=== PATIENT | female | born 1965 | race Two or more races ===

== ENCOUNTER 2022-09-30 01:30 | Inpatient (IN) | payer BC, OTHER ==
[~2022-09-30] VITALS: Ht 165.1 cm; Wt 125.6 kg
--- NOTE | 2022-09-30 01:30 | NUR ---
Anibj462 from home for generalized weakness. Pt A/Ox4. Tolerating R/A well with no resp. distress. Safety measures in place.
--- NOTE | 2022-09-30 01:54 | NUR ---
GENETIC TECHNOLOGIST AT PT'S BEDSIDE
--- NOTE | 2022-09-30 01:56 | NUR ---
BLOOD COLLECTED AND SENT TO LAB
--- NOTE | 2022-09-30 01:57 | NUR ---
COVID SWAB DONE AND SENT TO LAB
[2022-09-30 02:15] LABS: BASOPHILS # (AUTO) 0.2 K/uL (0.0-0.2); BASOPHILS % (AUTO) 3.1 % (0.0-2.0); EOSINOPHILS % (AUTO) 8.5 % (0.0-6.0); HEMATOCRIT 23 % (33-45); HEMOGLOBIN 7.4 g/dL (11.5-14.8); LYMPHOCYTES # (AUTO) 1.6 K/uL (0.8-4.8); LYMPHOCYTES % (AUTO) 23.4 % (20.0-44.0); MEAN CORPUSCULAR HGB CONC 33 g/dl (31.0-36.0); MEAN CORPUSCULAR VOLUME 91 fL (82-100); MONOCYTES # (AUTO) 0.8 K/uL (0.1-1.30); MONOCYTES % (AUTO) 12.5 % (2.0-12.0); NEUTROPHILS # (AUTO) 3.6 K/uL (1.8-8.9); NEUTROPHILS % (AUTO) 52.5 % (43.0-81.0); PLATELET COUNT (AUTO) 324 K/uL (150-450); RED BLOOD CELL COUNT(AUTO) 2.51 MIL/uL (4.0-5.2); WHITE BLOOD COUNT (AUTO) 6.8 K/uL (4.3-11.0)
[2022-09-30 02:36] LABS: ALANINE AMINOTRANSFERASE 18 U/L (12-78); ALKALINE PHOSPHATASE 86 U/L (46-116); ASPARTATE AMINOTRANSFERASE 16 U/L (15-37); BILIRUBIN,TOTAL 0.1 mg/dL (0.2-1.0); CALCIUM, SERUM 8.2 mg/dL (8.5-10.1); CARBON DIOXIDE 22 mmol/L (21-32); CHLORIDE 117 mmol/L (98-107); GLUCOSE 98 mg/dL (74-106); POTASSIUM 4.5 mmol/L (3.5-5.1); SODIUM SERUM 146 mmol/L (136-145); TOTAL PROTEIN, SERUM 4.2 g/dL (6.4-8.2); UREA NITROGEN, BLOOD 46 mg/dL (7-18)
[2022-09-30 02:37] LABS: ALBUMIN 0.9 g/dL (3.4-5.0)
--- NOTE | 2022-09-30 02:37 | NUR ---
CRITICAL LAB ALBUMIN 0.[address] JAIME.
[2022-09-30] MEDS ORDERED: DULO60CA64 PO (03:15)
[2022-09-30] MEDS ORDERED: METO5TAB7 (03:15)
[2022-09-30] MEDS ORDERED: AMLO-213 PO (03:15)
[2022-09-30] MEDS ORDERED: BUPR-319 PO (03:15)
[2022-09-30] MEDS ORDERED: ARIP5TAB59 PO (03:15)
[2022-09-30] MEDS ORDERED: LISI40TA13 PO (03:15)
[2022-09-30] MEDS ORDERED: BUSP15TA3 PO (03:15)
[2022-09-30] MEDS ORDERED: METO5TAB7 PO (03:15)
[2022-09-30] MEDS ORDERED: TRAZ150T75 PO (03:15)
--- NOTE | 2022-09-30 03:15 | NUR ---
REPORT GIVEN TO MACK FariasW RN FOR KAT
--- NOTE | 2022-09-30 03:19 | NUR ---
DR JAIME PRESENTING PT TO [facility], SALVADOR COLD ROLL INSPECTOR ADMITTING.
--- NOTE | 2022-09-30 03:25 | NUR ---
PT WAS TRANSFERRED TO THIRD FLOOR UNDER ACLS
[2022-09-30 03:30] VITALS: BP 126/61
[2022-09-30] MEDS ORDERED: MAGNESIUM HYDROXIDE 30 ML UDC PO PRN (03:30)
[2022-09-30] MEDS ORDERED: ONDANSETRON HCL/PF 4 MG/2 ML VIAL IVP PRN (03:30)
[2022-09-30] MEDS ORDERED: ACETAMINOPHEN 325 MG TABLET PO PRN (03:30)
[2022-09-30] MEDS ORDERED: MAG HYDROX/AL HYDROX/SIMETH 30 ML UDC PO PRN (03:30)
[2022-09-30] MEDS ORDERED: ZOLPIDEM TARTRATE 5 MG TABLET PO PRN (03:30)
[2022-09-30] MEDS ORDERED: Z GUARD REMEDY 4 OZ OINT TP PRN (03:30)
--- NOTE | 2022-09-30 03:30 | NUR ---
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
[2022-09-30 04:00] VITALS: BP 126/61
--- NOTE | 2022-09-30 06:52 | NUR ---
POWER SYSTEM ENGINEER NOTES FAIRLY RESTED SINCE CAME TO THE UNIT.DENIES PAIN DISCOMFORTS.DRY COUGH NOTED THIS MORNING,ENCOURAGED FLUID INTAKE,KEPT ON UPRIGHT POSITION.CALL LIGHT IN REACH,NEEDS ATTENDED.
[2022-09-30 07:30] VITALS: BP 138/83
--- NOTE | 2022-09-30 07:56 | NUR ---
RN OPENING NOTES PATIENT ON BED AWAKE A/O X 3-4. NO SIGN OF PAIN NOTED AT THIS TIME,ON ROOM AIR BREATHING EVENLY AND UNLABORED, NO DISTRESS OF SOB NOTED. IV ACCESS ON LEFT HAND #20G INTACT PATENT AND FLUSHING WELL. FALL AND SAFETY MEASURE IN PLACE, BED IN LOWEST LOCKED POSITION, BED ALARM ON, CALL LIGHT AND TABLE WITHIN EASY REACH, SIDE RAILS UP X2. WILL CONTINUE TO MONITOR.
--- NOTE | 2022-09-30 08:32 | NUR ---
WOUND CARE CONSULT: PT PRESENTS WITH BILATERAL LOWER LEG REDNESS WITH INTACT BLISTERS, PRESENT ON ADMISSION. UNNA WRAPS WERE REMOVED THIS AM. PT PREVIOUSLY REFUSED WRAP REMOVAL. DR PAGE CALLED FOR DPM CONSULT. IN AGREEMENT WITH PLAN OF CARE.
[2022-09-30] MEDS: busPIRone 5 MG TABLET PO SCH ×2 (08:48→17:19)
[2022-09-30] MEDS: PANTOPRAZOLE 40 MG TABLET.DR PO SCH (08:48)
[2022-09-30] MEDS: ARIPIPRAZOLE 5 MG TABLET PO SCH (08:48)
[2022-09-30] MEDS: BUPROPION XL 150 MG TAB.ER.24 PO SCH (08:51)
[2022-09-30] MEDS: AMLODIPINE BESYLATE 10 MG TABLET PO SCH (08:51)
[2022-09-30] MEDS: DULOXETINE HCL 30 MG CAPSULE.DR PO SCH (08:52)
[2022-09-30] MEDS ORDERED: ATOR40TA PO (08:55)
[2022-09-30 09:27] LABS: THYROID STIMULATING HORMONE 3.477 uIU/mL (0.358-3.74)
[2022-09-30] MEDS: FUROSEMIDE 100 MG/10 ML VIAL IV SCH ×3 (10:17→17:20)
[2022-09-30] MEDS: HEPARIN SODIUM, PORCINE 5000 UNITS/1 ML VIAL SQ SCH ×2 (10:17→21:00)
[2022-09-30 11:30] VITALS: BP 84/74
[2022-09-30 14:24] LABS: BILIRUBIN,URINE NEGATIVE (NEGATIVE); COLOR,URINE YELLOW (YELLOW); LEUKOCYTE ESTERASE ,URINE NEGATIVE (NEGATIVE); NITRITE, URINE NEGATIVE (NEGATIVE); PROTEIN,URINE 3+ mg/dl (NEGATIVE); UGLUCOSE NEGATIVE (NEGATIVE); UROBILINOGEN,URINE 0.2 EU/dL (0.2)
[2022-09-30 14:37] LABS: CREATININE, URINE 112.7 MG/DL (30.0-125.0); URINE TOTAL PROTEIN 459.3 mg/dL (0-11.9)
[2022-09-30 16:00] VITALS: BP 103/56
[2022-09-30 17:28] LABS: BACTERIA,URINE RARE /HPF (None Seen); WBC,URINE 0-2 /HPF (0-3)
--- NOTE | 2022-09-30 18:40 | NUR ---
RN CLOSING NOTES PATIENT ON BED AWAKE A/O X 3-4. NO SIGN OF PAIN NOTED AT THIS TIME, ON 2L/MIN OXYGEN VIA NC, BREATHING EVENLY AND UNLABORED, NO DISTRESS OF SOB NOTED, SATURATING AT 95%. IV ACCESS ON LEFT HAND #20G INTACT PATENT AND FLUSHING WELL. PATIENT ON EXTERNAL RESIDENCE LIFE DIRECTOR WITH CURRENT READING OF SR AND HR OF 93, NO CARDIAC DISTRESS NOTED.SCHEDULED MEDICATION GIVEN. ALL NEEDS ARE ATTENDED AND ANTICIPATED. FALL AND SAFETY MEASURE IN PLACE, BED IN LOWEST LOCKED POSITION, BED ALARM ON, CALL LIGHT AND TABLE WITHIN EASY REACH, SIDE RAILS UP X2. WILL ENDORSE TO ELECTRICAL INSPECTOR NURSE.
[2022-09-30 18:51] LABS: EOSINOPHIL,URINE None Seen
--- NOTE | 2022-09-30 19:30 | NUR ---
BUSINESS INTELLIGENCE DIRECTOR OPENING NOTES - RECEIVED PATIENT AWAKE, HOB IN SEMI-LO'S. A/O X3. VERBALIZED SHE STILL FEELS SOME SHORTNESS OF BREATH, CURRENTLY ON O2 AT 2LPM VIA NASAL CANULA. EQUAL RISE AND FALL OF CHEST NOTED. C/O CHRONIC DULL LOWER BACK PAIN 12/10. ON TELE MONITOR READING SINUS RHYTHM AT 92 BPM. HAS LEFT HAND IV ACCESS #20G AND SALINE LOCKED. NO S/S OF INFILTRATION NOTED. HAS PUREWICK CONNECTED TO CONTINUOUS SUCTION. SAFETY PRECAUTIONS IN PLACE: BED LOCKED AND IN LOW POSITION, SIDE RAILS UP X2, CALL LIGHT WITHIN REACH. WILL CONTINUE PLAN OF CARE.
--- NOTE | 2022-09-30 19:56 | NUR ---
RECEIVED AN ORDER FROM HOSPITALEVI FRANCO FOR LIPITOR 40MG 1 TAB PO QHS AND NORCO 10-325MG 1 TAB PO Q6H FOR MODERATE TO SEVERE PAIN. NOTED AND CARRIED OUT.
[2022-09-30 20:00] VITALS: BP 108/61
[2022-09-30] MEDS: CEFEPIME 2 GM in IV D5W 100 ML IV SCH (20:56)
[2022-09-30] MEDS: HYDROCODONE/APAP 10/325MG TABLET PO PRN (20:58)
--- NOTE | 2022-09-30 21:19 | NUR ---
HGB 7.4, HOLD HEPARIN PER MD ORDER. NO ACTIVE BLEEDING.
[2022-09-30] MEDS ORDERED: ATORVASTATIN 40 MG TABLET PO SCH (22:00)
[2022-09-30] MEDS: TRAZODONE 50 MG TABLET PO SCH (22:08)
[2022-10-01] VITALS (7 sets, daily range): BP systolic 107–142; BP diastolic 42–92
[2022-10-01] MEDS ORDERED: ACETYLCYSTEINE 10% SOLN 400 MG/4 ML VIAL NEB PRN (02:00)
--- NOTE | 2022-10-01 02:03 | NUR ---
DIFFICULTY SECRETING PHLEGM NOTED. PLACED ON HUMIDIFIER AND RECEIVED AN ORDER FOR MUCOMYST 10% NEB Q6H PRN. NOTED AND CARRIED OUT.
[2022-10-01 05:46] LABS: BASOPHILS # (AUTO) 0.1 K/uL (0.0-0.2); EOSINOPHILS % (AUTO) 6.6 % (0.0-6.0); HEMATOCRIT 22 % (33-45); HEMOGLOBIN 7.2 g/dL (11.5-14.8); LYMPHOCYTES # (AUTO) 2.7 K/uL (0.8-4.8); LYMPHOCYTES % (AUTO) 43.2 % (20.0-44.0); MEAN CORPUSCULAR HGB CONC 32 g/dl (31.0-36.0); MEAN CORPUSCULAR VOLUME 91 fL (82-100); MONOCYTES # (AUTO) 0.8 K/uL (0.1-1.30); MONOCYTES % (AUTO) 13.1 % (2.0-12.0); NEUTROPHILS # (AUTO) 2.2 K/uL (1.8-8.9); NEUTROPHILS % (AUTO) 36.1 % (43.0-81.0); PLATELET COUNT (AUTO) 325 K/uL (150-450); RED BLOOD CELL COUNT(AUTO) 2.47 MIL/uL (4.0-5.2); WHITE BLOOD COUNT (AUTO) 6.2 K/uL (4.3-11.0)
[2022-10-01 06:05] LABS: BILIRUBIN,TOTAL 0.1 mg/dL (0.2-1.0); CALCIUM, SERUM 8.2 mg/dL (8.5-10.1); CREATININE 1.7 mg/dL (0.6-1.3); MAGNESIUM 2.2 mg/dL (1.8-2.4); PHOSPHORUS 4.8 mg/dL (2.5-4.9); POTASSIUM 3.9 mmol/L (3.5-5.1); TOTAL PROTEIN, SERUM 4.1 g/dL (6.4-8.2)
[2022-10-01 06:10] LABS: ALBUMIN 0.8 g/dL (3.4-5.0)
--- NOTE | 2022-10-01 06:40 | NUR ---
ENCOURAGED PATIENT TO VOID, >600 ML URINE RETENTION NOTED IN BLADDER SCAN. NOTIFIED HOSPITALIST AND ORDERED IN AND OUT. NOTED AND CARRIED OUT. 550ML URINE OUTPUT DRAINED.
--- NOTE | 2022-10-01 07:02 | NUR ---
MOLD COOLER CLOSING NOTES - PATIENT RESTING IN BED, ABLE TO VERBALIZE NEEDS. KEPT HOB ELEVATED. MILD RESPIRATORY DISTRESS, PLACED ON O2 AT 2LPM WITH HUMIDIFIER TO PREVENT MUCOSAL DRYNESS. NO C/O PAIN OR DISCOMFORT AT THIS TIME. AFEBRILE. TELE MONITOR SHOWS SINUS RHYTHM AT 80-95 BPM. REINSERTED IV ACCESS TO RIGHT WRIST #24G AND SALINE LOCKED. INTACT, PATENT AND FLUSHING. CLEAR YELLOW URINE OUTPUT NOTED. ALL DUE MEDS GIVEN AND NEEDS ATTENDED. BILATERAL LOWER EXTREMITIES ELEVATED. SAFETY PRECAUTIONS MAINTAINED. WILL ENDORSE TO AM RN FOR KAT.
--- NOTE | 2022-10-01 07:10 | NUR ---
MOLDED GOODS SPOT PICKER OPENING NOTES - PATIENT RESTING IN BED, ABLE TO VERBALIZE NEEDS. KEPT HOB ELEVATED. MILD RESPIRATORY DISTRESS, PLACED ON O2 AT 2LPM WITH HUMIDIFIER TO PREVENT MUCOSAL DRYNESS. NO C/O PAIN OR DISCOMFORT AT THIS TIME. AFEBRILE. TELE MONITOR SHOWS SINUS RHYTHM AT 92 BPM. WITH REINSERTED IV ACCESS TO RIGHT WRIST #24G AND SALINE LOCKED. C/D/I. EDEMA AND MULTIPLE BLISTERS PRESENT ON BILATERAL LOWER EXTREMITIES, ELEVATED. SAFETY PRECAUTIONS MAINTAINED. WILL CONTINUE TO MONITOR.
[2022-10-01] MEDS: AMLODIPINE BESYLATE 10 MG TABLET PO SCH (08:37)
[2022-10-01] MEDS: DULOXETINE HCL 30 MG CAPSULE.DR PO SCH (08:37)
[2022-10-01] MEDS: ARIPIPRAZOLE 5 MG TABLET PO SCH (08:38)
[2022-10-01] MEDS: BUPROPION XL 150 MG TAB.ER.24 PO SCH (08:38)
[2022-10-01] MEDS: busPIRone 5 MG TABLET PO SCH ×2 (08:38→17:15)
[2022-10-01] MEDS: PANTOPRAZOLE 40 MG TABLET.DR PO SCH (08:43)
[2022-10-01] MEDS: HEPARIN SODIUM, PORCINE 5000 UNITS/1 ML VIAL SQ SCH ×2 (08:43→20:39)
[2022-10-01] MEDS ORDERED: BUMETANIDE INJ 16 MG in IV NS 0.9% 16 ML IV ONE (10:00)
[2022-10-01] MEDS ORDERED: EPOETIN ALFA (4000 UNIT) 4,000 UNIT/ML VIAL SQ SCH (15:00)
--- NOTE | 2022-10-01 18:51 | NUR ---
HEALTH THERAPIST CLOSING NOTES PATIENT RESTING IN BED, ABLE TO VERBALIZE NEEDS. KEPT HOB ELEVATED. MILD RESPIRATORY DISTRESS, PLACED ON O2 AT 3LPM WITH HUMIDIFIER TO PREVENT MUCOSAL DRYNESS. NO C/O PAIN OR DISCOMFORT AT THIS TIME. AFEBRILE. TELE MONITOR SHOWS SINUS RHYTHM AT 92 BPM. CLEAR YELLOW URINE OUTPUT NOTED. ALL DUE MEDS GIVEN AND NEEDS ATTENDED. BILATERAL LOWER EXTREMITIES ELEVATED. SAFETY PRECAUTIONS MAINTAINED. WILL ENDORSE TO PM RN FOR KAT.
--- NOTE | 2022-10-01 19:30 | NUR ---
ELEVATOR CONSTRUCTOR OPENING NOTES - RECEIVED PATIENT SLEEPING, EASY TO AROUSE. HOB ELEVATED TO 40 DEGREES. A/O X3. BREATHING EVEN AND NON-LABORED. ON O2 WITH HUMIDIFIER AT 3LPM VIA NASAL CANULA. C/O GENERALIZED BODY PAIN ESPECIALLY ON HER LEFT THIGH. ON TELE MONITOR READING SINUS RHYTHM AT 100 BPM. HAS RIGHT WRIST IV ACCESS #24G AND SALINE LOCKED. NO S/S OF INFILTRATION NOTED. HAS PUREWICK CONNECTED TO CONTINUOUS SUCTION. SAFETY PRECAUTIONS IN PLACE: BED LOCKED AND IN LOW POSITION, SIDE RAILS UP X2, CALL LIGHT WITHIN REACH. WILL CONTINUE PLAN OF CARE.
[2022-10-01] MEDS: HYDROCODONE/APAP 10/325MG TABLET PO PRN (19:52)
[2022-10-01] MEDS: CEFEPIME 2 GM in IV D5W 100 ML IV SCH (19:54)
--- NOTE | 2022-10-01 19:55 | NUR ---
PRN NORCO 10-325MG GIVEN TO PATIENT FOR C/O GENERALIZED PAIN MOSTLY IN HER BILATERAL THIGHS, ARMS AND ABDOMEN. WILL CONTINUE TO MONITOR.
--- NOTE | 2022-10-01 20:35 | NUR ---
NOTIFIED HOSPITALIST SALVADRO THAT PATIENT IS C/O SEVERE PAIN IN HER IV SITE. PATIENT IS HARD STICK AND IT HAS ALREADY BEEN CHANGED YESTERDAY. ORDERED MIDLINE. NOTED AND CARRIED OUT.
--- NOTE | 2022-10-01 20:40 | NUR ---
HGB 7.2, HOLD HEPARIN PER HOSPITALIST. NO BLOOD TRANSFUSION AT THIS TIME.
[2022-10-01] MEDS: TRAZODONE 50 MG TABLET PO SCH (22:39)
[2022-10-02] VITALS: BP 137/74
[2022-10-02 04:00] VITALS: BP 148/79
[2022-10-02 06:43] LABS: BASOPHILS # (AUTO) 0.1 K/uL (0.0-0.2); BASOPHILS % (AUTO) 0.9 % (0.0-2.0); EOSINOPHILS % (AUTO) 6.3 % (0.0-6.0); HEMATOCRIT 26 % (33-45); HEMOGLOBIN 8.4 g/dL (11.5-14.8); LYMPHOCYTES % (AUTO) 29.2 % (20.0-44.0); MEAN CORPUSCULAR HGB CONC 32 g/dl (31.0-36.0); MEAN CORPUSCULAR VOLUME 90 fL (82-100); MONOCYTES % (AUTO) 15.4 % (2.0-12.0); NEUTROPHILS # (AUTO) 3.3 K/uL (1.8-8.9); NEUTROPHILS % (AUTO) 48.2 % (43.0-81.0); PLATELET COUNT (AUTO) 361 K/uL (150-450); RED BLOOD CELL COUNT(AUTO) 2.91 MIL/uL (4.0-5.2); WHITE BLOOD COUNT (AUTO) 6.7 K/uL (4.3-11.0)
--- NOTE | 2022-10-02 06:46 | NUR ---
ENVIRONMENTAL RESTORATION PLANNER CLOSING NOTES - PATIENT RESTING COMFORTABLY, ABLE TO VERBALIZE NEEDS. TITRATED O2 TO 2LPM AND SATURATING AT 97%-98%. PT EVAL ORDERED SINCE PATIENT IS C/O INCREASE WEAKNESS. TELE MONITOR SHOWS SINUS RHYTHM AND SINUS TACHYCARDIA AT 90-110 BPM. COLD COMPRESS PLACED ON THE IV SITE, STILL AWAITING FOR MIDLINE NURSE. 850 ML OF CLEAR PALE URINE OUTPUT NOTED, NO BM. KEPT HOB IN SEMI LO'S. ALL DUE MEDS GIVEN AND NEEDS ATTENDED. SAFETY PRECAUTIONS MAINTAINED. WILL ENDORSE TO AM RN FOR KAT.
[2022-10-02 07:00] VITALS: BP 154/92
--- NOTE | 2022-10-02 07:00 | NUR ---
TRAVEL DIRECTOR OPENING NOTES RECEIVED PATIENT ASLEEP BUT EASY TO AROUSE, A/O X3. ABLE TO MAKE NEEDS KNOWN. NO SIGNS OF ACUTE DISTRESS NOTED. ON O2 INHALATION AT 2LPM VIA NC, NO SOB NOTED, BREATHING EVEN AND UNLABORED. ON TELE MONITOR SHOWING SINUS RHYTHM AT 94 BPM. WITH IV ACCESS TO RIGHT WRIST #24G AND SALINE LOCKED. EDEMA AND MULTIPLE BLISTERS PRESENT ON BILATERAL LOWER EXTREMITIES, ELEVATED. DENIES ANY PAIN AT THIS TIME. SAFETY MEASURES PUT IN PLACE. BED IN LOW AND LOCKED POSITION; SIDE RAILS UP X2; CALL LIGHT AND TABLE WITHIN EASY REACH. WILL CONTINUE WITH PLAN OF CARE.
[2022-10-02 07:24] LABS: BILIRUBIN,TOTAL 0.1 mg/dL (0.2-1.0); CALCIUM, SERUM 8.6 mg/dL (8.5-10.1); CREATININE 1.4 mg/dL (0.6-1.3); MAGNESIUM 2.1 mg/dL (1.8-2.4); PHOSPHORUS 5.1 mg/dL (2.5-4.9); POTASSIUM 4.2 mmol/L (3.5-5.1); TOTAL PROTEIN, SERUM 4.6 g/dL (6.4-8.2)
[2022-10-02 07:50] LABS: ALBUMIN 0.8 g/dL (3.4-5.0)
[2022-10-02] MEDS: DULOXETINE HCL 30 MG CAPSULE.DR PO SCH (08:59)
[2022-10-02] MEDS: ARIPIPRAZOLE 5 MG TABLET PO SCH (08:59)
[2022-10-02] MEDS: busPIRone 5 MG TABLET PO SCH ×2 (08:59→17:17)
[2022-10-02] MEDS: BUPROPION XL 150 MG TAB.ER.24 PO SCH (08:59)
[2022-10-02] MEDS: PANTOPRAZOLE 40 MG TABLET.DR PO SCH (08:59)
[2022-10-02] MEDS: METOLAZONE 2.5 MG TABLET PO SCH (09:38)
[2022-10-02] MEDS: FUROSEMIDE 100 MG/10 ML VIAL IV SCH ×3 (09:39→17:17)
[2022-10-02] MEDS: HEPARIN SODIUM, PORCINE 5000 UNITS/1 ML VIAL SQ SCH ×2 (09:40→21:55)
[2022-10-02] MEDS ORDERED: CLINDAMYCIN IV RTU IN D5W 900 MG/50 ML PIGGYBACK IV SCH (10:30)
[2022-10-02 12:00] VITALS: BP 143/85
[2022-10-02] MEDS ORDERED: VANCOMYCIN 1.5 GM in IV D5W 500ml IV ONE (12:00)
[2022-10-02] MEDS: EPOETIN ALFA-EPBX 4,000 UNIT/ML VIAL SQ SCH (15:13)
[2022-10-02 16:00] VITALS: BP 156/76
[2022-10-02] MEDS: PROSOURCE / PROSTAT (PYXIS) 30 ML UDC PO SCH (17:17)
--- NOTE | 2022-10-02 18:53 | NUR ---
CARPENTER ASSEMBLER CLOSING NOTES PATIENT IN BED, AWAKE WATCHING TV, A/O X3. ABLE TO MAKE NEEDS KNOWN. NO SIGNS OF ACUTE DISTRESS NOTED. ON O2 INHALATION AT 2LPM VIA NC, NO SOB NOTED, BREATHING EVEN AND UNLABORED. ON TELE MONITOR SHOWING SINUS RHYTHM AT BPM. WITH IV ACCESS TO RIGHT WRIST #24G AND SALINE LOCKED. EDEMA AND MULTIPLE BLISTERS PRESENT ON BILATERAL LOWER EXTREMITIES, REINFORCED HEALTH TEACHING TO ELEVATE THE BLE. DENIES ANY PAIN AT THIS TIME. ALL DUE MEDS GIVEN. ALL NURSING NEEDS ATTENDED. SAFETY MEASURES IMPLEMENTED. BED IN LOW AND LOCKED POSITION; SIDE RAILS UP X2; CALL LIGHT AND TABLE WITHIN EASY REACH. WILL ENDORSE TO ENVIRONMENTAL FIELD TEAM MEMBER NURSE FOR CONTINUITY OF CARE. Addendum: 10/02/22 at 1859 by MOSES BERNAL RN ON TELE MONITOR SHOWING SR/ST AT101 BPM.
--- NOTE | 2022-10-02 19:35 | NUR ---
high speed operator Opening Note Received patient in bed; awake, alert and oriented x 3. On O2 inhalation @ 2 lpm via nasal cannula; tolerating well. Not in any form of respiratory or cardiac distress. No c/o pain or discomfort. On tele monitoring with reading of SR hr-94 bpm. With IV access on right wrist 24g; patent, intact and saline locked. Able to make needs known. Safety precautions implemented: call light and table within reach, side rails up x 3, bed in lowest locked position. Will continue to monitor throughout shift.
[2022-10-02 20:00] VITALS: BP 161/77
[2022-10-02] MEDS: TRAZODONE 50 MG TABLET PO SCH (21:54)
[2022-10-03] VITALS: BP 138/69
[2022-10-03] MEDS: VANCOMYCIN 1 GM in IV D5W 250ml IV SCH ×2 (00:24→12:18)
[2022-10-03 04:00] VITALS: BP_SYST 139; BP_DIAS 69; BP_DIAS 79
[2022-10-03 05:56] LABS: BASOPHILS # (AUTO) 0.1 K/uL (0.0-0.2); BASOPHILS % (AUTO) 1.1 % (0.0-2.0); EOSINOPHILS % (AUTO) 6.9 % (0.0-6.0); HEMATOCRIT 25 % (33-45); HEMOGLOBIN 8.2 g/dL (11.5-14.8); LYMPHOCYTES # (AUTO) 2.2 K/uL (0.8-4.8); LYMPHOCYTES % (AUTO) 29.8 % (20.0-44.0); MEAN CORPUSCULAR HGB CONC 32 g/dl (31.0-36.0); MEAN CORPUSCULAR VOLUME 89 fL (82-100); MONOCYTES # (AUTO) 1.1 K/uL (0.1-1.30); MONOCYTES % (AUTO) 14.9 % (2.0-12.0); NEUTROPHILS # (AUTO) 3.4 K/uL (1.8-8.9); NEUTROPHILS % (AUTO) 47.3 % (43.0-81.0); PLATELET COUNT (AUTO) 378 K/uL (150-450); RED BLOOD CELL COUNT(AUTO) 2.85 MIL/uL (4.0-5.2); WHITE BLOOD COUNT (AUTO) 7.3 K/uL (4.3-11.0)
[2022-10-03 06:07] LABS: BILIRUBIN,TOTAL 0.1 mg/dL (0.2-1.0); CALCIUM, SERUM 8.8 mg/dL (8.5-10.1); CREATININE 1.2 mg/dL (0.6-1.3); MAGNESIUM 1.9 mg/dL (1.8-2.4); PHOSPHORUS 4.4 mg/dL (2.5-4.9); POTASSIUM 4.1 mmol/L (3.5-5.1); TOTAL PROTEIN, SERUM 4.3 g/dL (6.4-8.2)
[2022-10-03 06:15] LABS: ALBUMIN 0.7 g/dL (3.4-5.0)
[2022-10-03] MEDS: HYDROCODONE/APAP 10/325MG TABLET PO PRN ×3 (06:34→22:43)
--- NOTE | 2022-10-03 06:34 | NUR ---
RN Note Patient complained of generalized pain 10/10 pain scale. PRN [place] 10/325 mg 1 tab given po as ordered. Will continue to monitor and reassess patient.
[2022-10-03 07:00] VITALS: BP 132/71
--- NOTE | 2022-10-03 07:03 | NUR ---
power shear operator Closing Note Patient in bed; awake, a/o x 3. Still on o2 inhalation @ 2 lpm via nasal cannula; well tolerated. In no acute distress. No c/o pain or discomfort. On tele monitoring with reading of SR hr-99 bpm. With IV access on right wrist 24g; patent, intact and saline locked. All needs attended. All due meds given as ordered. Safety precautions maintained: call light and table within reach, side rails up x 3, bed in lowest locked position. Endorsed to morning shift for continuity of care.
--- NOTE | 2022-10-03 07:30 | NUR ---
carousel attendant Opening Note Pt is lying on the bed Smith position, Alert and A/O*4, generalized pain level 4 out of 10 after the Lincoln given at 0634. Pt has right wrist IV 24G, patent, and pending for Mid line insertion. Pt has 2L oxygen via NC with humidifier, even unlabored breathing, and no sign of SOB. Pt is sinus tachy at 101bpm. Skin is intact, redness bilateral lower feet, and swelling all extremities. Pt has purewick. All safety measures in placed, bed locked, call light and table within reach, side rails up*2, Will continue to monitor throughout the shift.
[2022-10-03] MEDS: PROSOURCE / PROSTAT (PYXIS) 30 ML UDC PO SCH ×3 (08:48→17:30)
[2022-10-03] MEDS: BUPROPION XL 150 MG TAB.ER.24 PO SCH (08:49)
[2022-10-03] MEDS: busPIRone 5 MG TABLET PO SCH ×2 (08:49→17:30)
[2022-10-03] MEDS: DULOXETINE HCL 30 MG CAPSULE.DR PO SCH (08:50)
[2022-10-03] MEDS: METOLAZONE 2.5 MG TABLET PO SCH (08:51)
[2022-10-03] MEDS: PANTOPRAZOLE 40 MG TABLET.DR PO SCH (08:52)
[2022-10-03] MEDS: HEPARIN SODIUM, PORCINE 5000 UNITS/1 ML VIAL SQ SCH ×2 (08:55→21:18)
[2022-10-03] MEDS: ARIPIPRAZOLE 5 MG TABLET PO SCH ×2 (09:00→21:12)
[2022-10-03] MEDS: FUROSEMIDE 100 MG/10 ML VIAL IV SCH ×3 (09:07→17:30)
--- NOTE | 2022-10-03 10:30 | NUR ---
preparation supervisor canning Note New right upper arm midline 18G inserted at 1005, the dressing is intact and line is patent.
[2022-10-03 12:00] VITALS: BP 157/74
--- NOTE | 2022-10-03 15:23 | NUR ---
title closer Note Pt had a complaint of bilateral hip pain 8 out of 10. Administered [place] 10-325 1 tab PO per prn order. Pt tolerated well. Will continue monitoring for further pain management.
[2022-10-03 16:00] VITALS: BP 147/78
--- NOTE | 2022-10-03 18:50 | NUR ---
personal lines advisor Closing Note Pt is lying on the bed Smith position, Alert and A/O*4, no pain at this moment. Pt has right upper arm midline 18G patent and intact. Pt has 2L oxygen via NC with humidifier, even unlabored breathing, and no sign of SOB. Pt is sinus rhythm at 92bpm. Skin has bilateral redness and edema on lower legs, and swelling on upper extremities. Pt has purewick and output of 1450mL during the day. Bowel movement twice during the shift. All safety measures in placed, bed locked, call light and table within reach, side rails up*2. Endorsed the patient to the lieutenant shift supervisor.
--- NOTE | 2022-10-03 19:24 | NUR ---
WILDLIFE PROTECTOR OPENING NOTES RECEIVED PATIENT IN BED AWAKED AOX4 ABLE TO MAKE NEEDS KNOWN.ON 2L O2 VIA NC BRIANNA WELL SAT 98%,NO SOB/DISTRESS NOTED,BREATHING EVEN AND UNLABORED.WITH IV ACCESS ON GILA ML SALINE LOCKED,PATENT AND INTACT, EDEMA AND MULTIPLE BLISTERS PRESENT ON BILATERAL LOWER EXTREMITIES,DENIES ANY PAIN/DISCOMFORT AT THIS TIME. SAFETY MEASURES PUT IN PLACE. BED IN LOW AND LOCKED POSITION; SIDE RAILS UP X2; CALL LIGHT AND TABLE WITHIN EASY REACH. WILL CONTINUE TO MONITOR.
[2022-10-03 20:00] VITALS: BP 144/78
[2022-10-03] MEDS: TRAZODONE 50 MG TABLET PO SCH (21:12)
[2022-10-04] VITALS: BP 145/75
[2022-10-04] MEDS: VANCOMYCIN 1 GM in IV D5W 250ml IV SCH ×3 (00:34→23:21)
[2022-10-04 04:00] VITALS: BP 144/79
[2022-10-04 06:01] LABS: BASOPHILS % (AUTO) 0.2 % (0.0-2.0); EOSINOPHILS % (AUTO) 8.3 % (0.0-6.0); HEMATOCRIT 26 % (33-45); HEMOGLOBIN 8.5 g/dL (11.5-14.8); LYMPHOCYTES # (AUTO) 2.2 K/uL (0.8-4.8); LYMPHOCYTES % (AUTO) 38.4 % (20.0-44.0); MEAN CORPUSCULAR HGB CONC 32 g/dl (31.0-36.0); MEAN CORPUSCULAR VOLUME 90 fL (82-100); MONOCYTES # (AUTO) 0.7 K/uL (0.1-1.30); MONOCYTES % (AUTO) 12.8 % (2.0-12.0); NEUTROPHILS # (AUTO) 2.3 K/uL (1.8-8.9); NEUTROPHILS % (AUTO) 40.3 % (43.0-81.0); PLATELET COUNT (AUTO) 325 K/uL (150-450); WHITE BLOOD COUNT (AUTO) 5.7 K/uL (4.3-11.0)
--- NOTE | 2022-10-04 06:26 | NUR ---
AIRCRAFT DISPATCHER CLOSING NOTES PATIENT IN BED AWAKED AOX4 ABLE TO MAKE NEEDS KNOWN.ON 2L O2 VIA NC BRIANNA WELL SAT 97.8%,NO SOB/DISTRESS NOTED,BREATHING EVEN AND UNLABORED.WITH IV ACCESS ON GILA ML SALINE LOCKED,PATENT AND INTACT,DUE MEDS GIVEN ORDER,ALL NEEDS ATTENDED,EDEMA AND MULTIPLE BLISTERS PRESENT ON BILATERAL LOWER EXTREMITIES ELEVATE WITH PILLOW,SAFETY MEASURES PUT IN PLACE. BED IN LOW AND LOCKED POSITION; SIDE RAILS UP X2; CALL LIGHT AND TABLE WITHIN EASY REACH. WILL ENDORSED TO NEXT SHIFT.
[2022-10-04 06:31] LABS: BILIRUBIN,TOTAL 0.1 mg/dL (0.2-1.0); CALCIUM, SERUM 7.9 mg/dL (8.5-10.1); MAGNESIUM 1.6 mg/dL (1.8-2.4); PHOSPHORUS 3.6 mg/dL (2.5-4.9); POTASSIUM 3.4 mmol/L (3.5-5.1); TOTAL PROTEIN, SERUM 3.9 g/dL (6.4-8.2)
[2022-10-04 06:34] LABS: ALBUMIN 0.6 g/dL (3.4-5.0)
[2022-10-04 07:00] VITALS: BP 147/83
--- NOTE | 2022-10-04 07:52 | NUR ---
RN OPENING NOTE RECEIVED PATIENT IN BED AO x 4, ABLE TO RESPONDS PHYSICAL STIMULI. RESPIRATORY EVEN AND UNLABORED ON OXYGEN AT 2 Ls VIA NC. IN NO ACUTE RESPIRATORY DISTRESS OBSERVED. SKIN IS WARM TO TOUCH, KEEP CLEAN/DRY. KEPT ELEVATED HOB FOR ASPIRATION PRECAUTION/ENSURE AIRWAY, ALSO LOWEST BED POSITIONED. BED ALARM IS ON AT ALL TIMES FOR SAFETY. CALL LIGHT WITHIN REACH, WILL CONTINUE TO MONITOR.
--- NOTE | 2022-10-04 08:28 | NUR ---
PATIENT NOTED ALBUMIN LEVELS IS 0.6 I THIS MORNING, SHE TAKES PROSTAT TID CURRENTLY, INFORMED MD REGARDING ABOVE.
[2022-10-04] MEDS: PROSOURCE / PROSTAT (PYXIS) 30 ML UDC PO SCH ×3 (08:37→16:14)
[2022-10-04] MEDS: busPIRone 5 MG TABLET PO SCH ×2 (08:38→16:14)
[2022-10-04] MEDS: DULOXETINE HCL 30 MG CAPSULE.DR PO SCH (08:38)
[2022-10-04] MEDS: PANTOPRAZOLE 40 MG TABLET.DR PO SCH (08:38)
[2022-10-04] MEDS: BUPROPION XL 150 MG TAB.ER.24 PO SCH (08:38)
[2022-10-04] MEDS: METOLAZONE 2.5 MG TABLET PO SCH (08:39)
[2022-10-04] MEDS: HEPARIN SODIUM, PORCINE 5000 UNITS/1 ML VIAL SQ SCH ×2 (08:40→21:08)
[2022-10-04] MEDS ORDERED: MAGNESIUM OXIDE 400 MG TABLET PO ONE (10:00)
--- NOTE | 2022-10-04 10:15 | NUR ---
PER PATIENT, HAVING RASH AROUND EYES SINCE COUPLE OF DAYS AGO DUE TO ZAROXOLYN , MADE AWARE AND DISCONTINUED ZAROXOLYN.
[2022-10-04] MEDS ORDERED: POTASSIUM CHLORIDE 20 MEQ TAB.PRT.SR PO SCH (10:30)
[2022-10-04 16:00] VITALS: BP 152/82
--- NOTE | 2022-10-04 17:56 | NUR ---
RN CLOSING NOTE PATIENT RESTING IN BED. IN NO ACUTE DISTRESS OBSERVED. RESPIRATORY EVEN AND UNLABORED ON OXYGEN AT 2Ls VIA NC, NO SOB OR DESATURATION NOTED. SKIN IS WARM TO TOUCH KEEP CLEAN/DRY. KEPT ELEVATED HOB FOR ENSURE AIRWAY/ASPIRATION PRECAUTION, AND LOWEST BED POSITION. BED ALARM IS ON AT ALL THE TIME FOR SAFETY. CALL LIGHT WITHIN REACH, WILL ENDORSE STATION MECHANIC APPRENTICE.
--- NOTE | 2022-10-04 19:00 | NUR ---
MS ASTRID INITIAL NOTES Received report from am nurse and seen patient in bed on semi fowlers position with side rails x2 up . Denies any pain or any discomfort, breathing even and non-labored. she's on O2 at 2liters via Nasal Canula. Patient skin warm and dry to touch, noticed BLE blister and redness. Kept her on semi fowlers position for aspipration precaution. Pt aware how to used the call light system , i encourage her to use if she needs some help or needs the nurse. Bed in low and lock in position with side rails x2 up and bed alarm set for safety will continue monitoring. call light at reach.
[2022-10-04 20:49] VITALS: BP 146/89
[2022-10-04] MEDS: ARIPIPRAZOLE 5 MG TABLET PO SCH (21:49)
[2022-10-04] MEDS: TRAZODONE 50 MG TABLET PO SCH (21:49)
[2022-10-04] MEDS: HYDROCODONE/APAP 10/325MG TABLET PO PRN (21:58)
[2022-10-05 06:40] LABS: BASOPHILS # (AUTO) 0.1 K/uL (0.0-0.2); BASOPHILS % (AUTO) 1.3 % (0.0-2.0); EOSINOPHILS % (AUTO) 7.9 % (0.0-6.0); HEMATOCRIT 25 % (33-45); HEMOGLOBIN 8.2 g/dL (11.5-14.8); LYMPHOCYTES # (AUTO) 2.3 K/uL (0.8-4.8); LYMPHOCYTES % (AUTO) 33.6 % (20.0-44.0); MEAN CORPUSCULAR HGB CONC 33 g/dl (31.0-36.0); MEAN CORPUSCULAR VOLUME 89 fL (82-100); MONOCYTES # (AUTO) 0.9 K/uL (0.1-1.30); MONOCYTES % (AUTO) 12.8 % (2.0-12.0); NEUTROPHILS % (AUTO) 44.4 % (43.0-81.0); PLATELET COUNT (AUTO) 371 K/uL (150-450); WHITE BLOOD COUNT (AUTO) 6.7 K/uL (4.3-11.0)
[2022-10-05 06:49] LABS: CREATININE 1.3 mg/dL (0.6-1.3); MAGNESIUM 2.1 mg/dL (1.8-2.4); PHOSPHORUS 3.9 mg/dL (2.5-4.9)
--- NOTE | 2022-10-05 06:52 | NUR ---
MS SHANK BREAKER CLOSING NOTES PT REMAINS SLEEPING COMFORTABLY IN BED WITHOUT ANY ACUTE DISTRESS OR ANY DISCOMFORT NOTED. AROUSE EASILY , REFUSED TO BE CHANGE HER BEDDINGS AGAIN SAYING SHE'S FINE. ALL DUE MEDS GIVEN AND ALL NEEDS MET. KEPT HER WARM AND COMFORTABLE AT ALL TIMES. BED IN LOW AND LOCK IN POSITION WITH SIDE RAILS X2 UP. PLACE CALL LIGHT AT REACH. WILL ENDORSE TO AM NURSE FOR CONTINUITY OF CARE.
--- NOTE | 2022-10-05 07:46 | NUR ---
MS RN NOTES Patient awake in bed A/Ox4, Denies any pain or any discomfort, breathing even and non-labored. On O2 at 2liters via Nasal Canula. No cardiac or respiratory distress noted. Safety precautions implemented. Bed in low and lock in position with side rails x2 up and bed alarm set for safety will continue monitoring. Will continue to monitor plan of care.
[2022-10-05 08:00] VITALS: BP 156/89
[2022-10-05] MEDS: LOSARTAN POTASSIUM 25 MG TABLET PO SCH (08:35)
[2022-10-05] MEDS: PANTOPRAZOLE 40 MG TABLET.DR PO SCH (08:35)
[2022-10-05] MEDS: PROSOURCE / PROSTAT (PYXIS) 30 ML UDC PO SCH ×3 (08:35→16:48)
[2022-10-05] MEDS: DULOXETINE HCL 30 MG CAPSULE.DR PO SCH (08:35)
[2022-10-05] MEDS: BUPROPION XL 150 MG TAB.ER.24 PO SCH (08:36)
[2022-10-05] MEDS: busPIRone 5 MG TABLET PO SCH ×2 (08:36→16:47)
[2022-10-05] MEDS: HEPARIN SODIUM, PORCINE 5000 UNITS/1 ML VIAL SQ SCH ×2 (08:40→21:34)
[2022-10-05] MEDS ORDERED: NEPRO VAN 237 ML CAN PO PRN (09:30)
[2022-10-05 16:00] VITALS: BP 160/82
[2022-10-05] MEDS: EPOETIN ALFA-EPBX 4,000 UNIT/ML VIAL SQ SCH (16:23)
[2022-10-05] MEDS: diphenhydrAMINE HCL 25 MG CAPSULE PO PRN ×2 (16:48→23:17)
--- NOTE | 2022-10-05 18:43 | NUR ---
MS RN CLOSING NOTES Patient awake in bed A/Ox4, O breathing even and non-labored. On O2 at 2liters via Nasal Canula. No cardiac or respiratory distress noted. Patient is cleared to be discharged by nephro and awaiting for cardio clearance. Safety precautions implemented. Periorbital redness noted, Dr. Wheatley ordered for Benadryl, administered as ordered. Bed in low and lock in position with side rails x2 up and bed alarm set for safety. Will endorsed to next nurse for KAT.
--- NOTE | 2022-10-05 19:00 | NUR ---
MS FURRIER SHOP SUPERVISOR INITIAL NOTES Received report from am nurse, and seen pt in her bed lying down on semi fowlers position with side rails x2 up.No signs of any acute distress noted. pt asking for her benadryl because her eyes started itchy . I'll checked and told her that it will be by 11pm pt states' its OK I'll can wait. I also told her what medication she can have tonight and pt request to have it by 9:30 instead of 10. Kept her warm and comfortable at all times. Will continue monitoring.
[2022-10-05 20:00] VITALS: BP 160/84
[2022-10-05] MEDS: ARIPIPRAZOLE 5 MG TABLET PO SCH (21:32)
[2022-10-05] MEDS: TRAZODONE 50 MG TABLET PO SCH (21:33)
--- NOTE | 2022-10-05 23:27 | NUR ---
ms energy attorney notes benadryl po given as ordered per pt requested.
--- NOTE | 2022-10-06 06:36 | NUR ---
MS ASTRID NOTES PT SEEN AWAKE AT THIS TIME, DENIES ANY PAIN OR ANY DISCOMFORT. SLEPT WELL, ALL DUE MEDS GIVEN AND STABLE THROUGHOUT THE NIGHT. MORNING CARE DONE BY RAILROAD ENGINEER . KEPT HER WARM AND COMFORTABLE AT ALL TIMES. BED IN LOW AND LOCK IN POSITION WITH SIDE RAILS X2 UP. WILL ENDORSE TO AM NURSE FOR CONTINUITY OF CARE. PLACE CALL LIGHT AT REACH.
[2022-10-06 07:35] LABS: BASOPHILS % (AUTO) 0.7 % (0.0-2.0); EOSINOPHILS % (AUTO) 8.1 % (0.0-6.0); HEMATOCRIT 25 % (33-45); HEMOGLOBIN 8.2 g/dL (11.5-14.8); LYMPHOCYTES # (AUTO) 1.7 K/uL (0.8-4.8); LYMPHOCYTES % (AUTO) 28.3 % (20.0-44.0); MEAN CORPUSCULAR HGB CONC 33 g/dl (31.0-36.0); MEAN CORPUSCULAR VOLUME 89 fL (82-100); MONOCYTES # (AUTO) 0.7 K/uL (0.1-1.30); MONOCYTES % (AUTO) 11.3 % (2.0-12.0); NEUTROPHILS # (AUTO) 3.2 K/uL (1.8-8.9); NEUTROPHILS % (AUTO) 51.6 % (43.0-81.0); PLATELET COUNT (AUTO) 392 K/uL (150-450); RED BLOOD CELL COUNT(AUTO) 2.84 MIL/uL (4.0-5.2); WHITE BLOOD COUNT (AUTO) 6.1 K/uL (4.3-11.0)
[2022-10-06 08:00] VITALS: BP 160/87
[2022-10-06 08:04] LABS: CALCIUM, SERUM 8.5 mg/dL (8.5-10.1); CREATININE 1.3 mg/dL (0.6-1.3); PHOSPHORUS 3.6 mg/dL (2.5-4.9); POTASSIUM 3.5 mmol/L (3.5-5.1)
--- NOTE | 2022-10-06 08:09 | NUR ---
RN OPENING NOTE RECEIVED PATIENT AWAKE ON BED A/O X4, ON ROOM AIR WITH NO SOB OR SIGNS OF RESPIRATORY DISTRESS. NO S/S OF PAIN AT THIS TIME. WITH IV ACCES ON RIGHT UPPER ARM MIDLINE #18G. SAFETY MEASURE IN PLACE, BED IN LOWER LOCKED POSITION, SIDE RAILS UP X2, CALL LIGHT WITHIN REACH. WILL CONTINUE TO MONITOR.
[2022-10-06] MEDS: PANTOPRAZOLE 40 MG TABLET.DR PO SCH (08:56)
[2022-10-06] MEDS: diphenhydrAMINE HCL 25 MG CAPSULE PO PRN (08:56)
[2022-10-06] MEDS: BUPROPION XL 150 MG TAB.ER.24 PO SCH (08:56)
[2022-10-06] MEDS: PROSOURCE / PROSTAT (PYXIS) 30 ML UDC PO SCH ×3 (08:56→17:00)
[2022-10-06] MEDS: busPIRone 5 MG TABLET PO SCH ×2 (08:57→17:00)
[2022-10-06] MEDS: DULOXETINE HCL 30 MG CAPSULE.DR PO SCH (08:57)
[2022-10-06] MEDS: LOSARTAN POTASSIUM 25 MG TABLET PO SCH (08:58)
[2022-10-06] MEDS: HEPARIN SODIUM, PORCINE 5000 UNITS/1 ML VIAL SQ SCH (08:59)
[2022-10-06] MEDS ORDERED: LORATADINE 10 MG TABLET PO SCH (11:00)
[2022-10-06] MEDS ORDERED: OLOPATADINE HCL 0.1% OPHTH BOTTLE EACHEYE SCH (11:00)
[2022-10-06] MEDS ORDERED: VANCOMYCIN 1 GM in IV D5W 250ml IV SCH ×2 (12:00→23:00)
--- NOTE | 2022-10-06 15:31 | NUR ---
RN NOTE DOCTOR ORDERED TO COLLECT A URINE SAMPLE FOR URINALYSIS. STRAIGHT CATH DONE PER DOCTOR ORDER. PATIENT WAS EDUCATED AND INSTRUCTED ABOUT THE PROCEDURE. PT TOLERATED PROCEDURE WELL. DENIES ANY PAIN OR DISCOMFORT, OUTPUT WAS 50ML YELLOW URINE. LAB NOTIFIED.
[2022-10-06 16:00] VITALS: BP 138/92
[2022-10-06 16:57] LABS: BILIRUBIN,URINE NEGATIVE (NEGATIVE); COLOR,URINE YELLOW (YELLOW); LEUKOCYTE ESTERASE ,URINE 1+ (NEGATIVE); NITRITE, URINE NEGATIVE (NEGATIVE); PH,URINE 6.5 (5.0-8.0); PROTEIN,URINE 3+ mg/dl (NEGATIVE); UGLUCOSE TRACE mg/dL (NEGATIVE); UROBILINOGEN,URINE 0.2 EU/dL (0.2)
[2022-10-06] MEDS: HYDROCODONE/APAP 10/325MG TABLET PO PRN (17:09)
[2022-10-06 17:53] LABS: BACTERIA,URINE Rare /HPF (None Seen); MUCUS,URINE Moderate /LPF (None Seen)
--- NOTE | 2022-10-06 18:29 | NUR ---
RN CLOSING NOTE PATIENT AWAKE ON BED A/O X4, ON OXYGEN 2L/MIN VIA NC WITH NO SOB OR SIGNS OF RESPIRATORY DISTRESS. PATIENT WAS ON PAIN 8/10, MEDICATION GIVEN AND WAS EFFECTIVE 2/10 CURRENT PAIN LEVEL. WITH IV ACCES ON RIGHT UPPER ARM MIDLINE #18G. SCHEDULED MEDICATION GIVEN. PATIENT WAS REPOSITION AND TURNED PER PROTOCOL. ALL NEEDS ATTENDED AND ANTICIPATED. SAFETY MEASURE IN PLACE, BED IN LOWER LOCKED POSITION, SIDE RAILS UP X2, CALL LIGHT WITHIN REACH. WILL ENDORSE TO DIRECTOR OF MARKETING COMMUNICATIONS NURSE.
[2022-10-06] MEDS ORDERED: CEFTRIAXONE 1 G in IV D5W 50 ML IV ONE (18:30)
[2022-10-06] MEDS ORDERED: BUME1TAB34 PO (18:40)
[2022-10-06] MEDS ORDERED: DOXY100C2 PO (18:40)
[2022-10-06] MEDS ORDERED: CEPH500C2 PO (18:40)
[2022-10-06] MEDS ORDERED: BUME1TAB9 PO (18:43)
[2022-10-06] MEDS ORDERED: CEFTRIAXONE 1 G in IV D5W 50 ML IV SCH (19:00)
--- NOTE | 2022-10-06 20:30 | NUR ---
MS SALES OPERATIONS DIRECTOR NOTE RECEIVED PATIENT FROM AM NURSE; PATIENT AWAKE IN BED, A/O X 4, ABLE TO MAKE NEEDS KNOWN; STABLE ON ROOM AIR, BREATHING EVENLY AND NO S/S OF DISTRESS NOTED; WITH MIDLINE ACCESS AT GILA G#18, REMOVED AND CHECKED FOR COMPLETENESS PRIOR TO DISCHARGE; PATIENT MADE COMFORTABLE; VITAL SIGNS TAKEN AND RECORDED; DUE MEDICATIONS GIVEN; PATIENT'S NEEDS ATTENDED; REPORT GIVEN TO JOEL [facility]END[facility] OF [facility]; PATIENT LEFT HOSPITAL IN STABLE AND PLEASANT CONDITION; LEFT [facility] AT 2024 WITH 2 TABLE MAKER.
[2022-10-06] MEDS ORDERED: NITROFURANTOIN/MONOHYDRATE MACROCRYSTALS 100 MG CAPSULE PO SCH (21:00)
== END 2022-10-06 20:25 | DRG 682 ==
LOC: ER 01:33 → TELE 03:06 → MED 10-04 11:53
PROVIDERS: ADMIT Nurse Practitioner Acute Care; ATTEND Student in an Organized Health Care Education/Training Program
PROC: 05HB33Z Insertion of Infusion Device into Right Basilic Vein, Percutaneous Approach (ICD-10-PCS; principal; 2022-10-03)
DX: N17.0 Acute kidney failure with tubular necrosis (principal); E43 Unspecified severe protein-calorie malnutrition; N39.0 Urinary tract infection, site not specified; Z68.42 Body mass index [BMI] 45.0-49.9, adult; L03.116 Cellulitis of left lower limb; L03.115 Cellulitis of right lower limb; E87.0 Hyperosmolality and hypernatremia; N04.2 Nephrotic syndrome with diffuse membranous glomerulonephritis; E87.79 Other fluid overload; E88.09 Other disorders of plasma-protein metabolism, not elsewhere classified; E66.01 Morbid (severe) obesity due to excess calories; Z71.3 Dietary counseling and surveillance; E87.6 Hypokalemia; G47.33 Obstructive sleep apnea (adult) (pediatric); Z79.899 Other long term (current) drug therapy; Z87.891 Personal history of nicotine dependence; E78.5 Hyperlipidemia, unspecified; K64.9 Unspecified hemorrhoids; D63.8 Anemia in other chronic diseases classified elsewhere; I87.2 Venous insufficiency (chronic) (peripheral); I10 Essential (primary) hypertension
CPT/HCPCS: 36410; 36415; 71045-TC; 76770-TC; 80048-TC; 80053-TC; 80061-TC; 80076-TC; 80202-TC; 81001; 82533; 82570-TC; 82728-TC; 83540-TC; 83735-TC; 83880; 84100-TC; 84300-TC; 84439-TC; 84443-TC; 84484-TC; 85025-TC; 86706; 86803; 87081-TC; 87086-TC; 93307-TC; 93970-TC; 97110-TC; 97530-TC; A4223; C9803; G0378; J0692; J0696; J0885; J1644; J1940; J3370; J3490; J7050; J7060; Q0163